=== PATIENT | female | born 1990 | race Caucasian/White ===

== ENCOUNTER → 2018-12-05 12:27 | Outpatient (CLI) | payer OTHER, MEDICAID, SELFPAY ==
--- NOTE | 2018-12-05 12:29 | DI.US.S_ITS ---
PROCEDURE: US OB >= 14 WEEKS FETUS INDICATIONS: ANATOMY SURVEY OUTSIDE/PRIOR DATING DATA: Last menstrual period (LMP): Unknown. LMP-based estimated date of delivery (CHARLES): N./A.. First dating scan (date and location): 10/16/18. Estimated date of delivery (CHARLES) from first dating scan: 03/01/19. TECHNIQUE: Real-time scanning was performed of the fetus, with image documentation and biometric measurements. Endovaginal scanning: Vertex COMPARISON: [facility], OB LIMITED, 10/16/2018, 21:20. FINDINGS: General: A single living intrauterine gestation is present. Presentation: Vertex Placenta: Placental position is anterior, without previa. Amniotic fluid index: 3.4 cm, normal range is 5-24 cm. heart rate: 153 beats per minute. Maternal cervical canal: 3.4 cm long. Normal lower limit is 2.5 cm. biometrics: Biparietal diameter: 28 weeks 6 days Head circumference: 29 weeks 3 days Abdominal circumference: 28 weeks 5 days Femur length: 25 weeks 4 days Estimated gestational age from initial scan: 27 weeks 5 days Composite gestational age from present scan: 27 weeks 4 days Estimated weight and percentile: 1115 g; 37 percentile Measurement variability for biometric dating: +/- 7 days from 14 weeks to 15 weeks 6 days gestation, +/- 10 days from 16 weeks to 21 weeks 6 days gestation, +/- 2 weeks from 22 weeks to 27 weeks 6 days gestation, +/- 3 weeks for 28 weeks gestation or later. weight reference: 4500 g or EFW >90/95% is considered macrosomia or large for gestational age. EFW <10% is small for gestational age. EFW 5% or less is considered intra-uterine growth restriction. Anatomic survey: Neuro: Ventricles are non-dilated at less than 10 mm. Cisterna magna is normal at 3-11 mm. Cerebellum is normal in size and morphology. Nuchal skin fold: Normal at less than 6 mm between 14-21 weeks gestational age. Face: Nose and lips, facial profile are normal. Spine: No evidence for spina bifida. Heart: 4-chambered heart is present, with normal ventricular outflow tracts. Diaphragm: Diaphragm is intact. Stomach: Left-sided stomach is present. Kidneys: No hydronephrosis. Normal is less than 5 mm in 2nd trimester, less than 7 mm in 3rd trimester. Cord: 3-vessel cord has orthotopic insertion. Bladder: Normal in size. Extremities: All 4 extremities identified. IMPRESSION: 1. Normal interval growth. 2. Normal anatomic survey. Dictated by: Florin Lofton [facility] Interpreted: Gia Gutierrez MD on 12/05/2018 at 15:24 Approved by: Gia Gutierrez MD, PhD on 12/05/2018 at 18:03
[2018-12-05 15:37] LABS: Add Manual Diff / Slide Review NO; Basophils Absolute Auto 0 /uL (0-100); Basophils Percent Auto 0.3 % (0-2); Eosinophils Absolute Auto 100 /uL (0-450); Hematocrit 40.1 % (36-46); Hemoglobin 13.3 g/dL (12.0-16.0); Lymphocytes Absolute Auto 1200 /uL (1100-4500); Lymphocytes Percent Auto 10.6 % (25-40); Mean Corpuscular HGB Conc 33.2 % (30-36); Mean Corpuscular Hemoglobin 29.8 PG (26-34); Mean Corpuscular Volume 89.9 fL (80-100); Monocytes Absolute Auto 800 /uL (0-900); Monocytes Percent Auto 7.3 % (3-14); Neutrophils Absolute Auto 9300 /uL (1500-7000); Neutrophils Percent Auto 80.8 % (50-75); Platelet Count 217 X10^3/uL (150-400); Red Blood Cell Count 4.46 X10^6/uL (4.0-5.2); Red Cell Distribution Width 12.9 % (11.6-14.8); White Blood Cell Count 11.5 X10^3/uL (4.5-11.0)
[2018-12-05 15:57] LABS: GTT (PREG) 1 Hour PP 50gm Dose 81 mg/dL (76-139)
[2018-12-05 16:05] LABS: Appearance Urine UA CLEAR; Bilirubin Urine UA NEGATIVE (NEGATIVE); Color Urine UA YELLOW; Glucose Urine UA NEGATIVE (Negative); Ketones Urine UA NEGATIVE (NEGATIVE); Leukocyte Esterase Urine UA NEGATIVE (NEGATIVE); Nitrite Urine UA NEGATIVE (Negative); Occult Blood Urine UA NEGATIVE (Negative); Protein Urine UA NEGATIVE (Negative); Urobilinogen Urine UA 0.2 E.U./dL (0.2); pH Urine UA 7.5 (4.5-8.0)
[2018-12-05 16:52] LABS: Hepatitis B Surface Antigen NEGATIVE s/c (NEGATIVE); Rubella Antibody IgG 51.7 IU/mL (>15)
[2018-12-05 17:13] LABS: HIV 1 and 2 Antibody NEGATIVE (NEGATIVE); Hep C Virus Ab w/Reflex Quant NEGATIVE s/c (NEGATIVE)
[2018-12-07 14:02] LABS: RPR Screen Nonreactive (Nonreactive)
== END ==
PROVIDERS: Visit Provider Obstetrics & Gynecology
DX: Z34.82 Encounter for supervision of other normal pregnancy, second trimester (principal); Z36.89 Encounter for other specified antenatal screening; Z3A.27 27 weeks gestation of pregnancy
CPT/HCPCS: 36415; 76811; 80055; 81003; 82950; 86703; 86787; 86803; 86850; 86900; 86901; 87086

== ENCOUNTER → 2018-12-19 17:15 | Outpatient (CLI) | payer OTHER, MEDICAID, SELFPAY ==
[2018-12-19 19:04] LABS: Urine Amphetamines Negative (Negative); Urine Barbiturates Negative (Negative); Urine Benzodiazepines Negative (Negative); Urine Cocaine Negative (Negative); Urine MDMA Negative (Negative); Urine Methadone Negative (Negative); Urine Methamphetamines Negative (Negative); Urine Morphine/Opi cutoff 2000 Negative (Negative); Urine Oxycodone Negative (Negative); Urine Phencyclidine Negative (Negative); Urine Tetrahydrocannabinol Negative (Negative); Urine Tricyclic Antidepressant Negative (Negative)
[2018-12-19 20:30] LABS: Urine N gonorrhoeae NOT DETECTED
[2018-12-19 20:31] LABS: Urine Chlamydia NOT DETECTED
== END ==
PROVIDERS: Visit Provider Obstetrics & Gynecology
DX: Z34.82 Encounter for supervision of other normal pregnancy, second trimester (principal); Z3A.28 28 weeks gestation of pregnancy
CPT/HCPCS: 80305; 87491; 87591

== ENCOUNTER → 2019-02-07 15:24 | Outpatient (CLI) | payer OTHER, MEDICAID, SELFPAY ==
[2019-02-08 15:58] LABS: Strep Grp B PCR POS for Grp B Strep
== END ==
PROVIDERS: Visit Provider Obstetrics & Gynecology
DX: Z34.83 Encounter for supervision of other normal pregnancy, third trimester (principal)
CPT/HCPCS: 87653

== ENCOUNTER 2019-03-02 07:44 | Inpatient (IN) | payer OTHER, MEDICAID, SELFPAY ==
[2019-03-02] VITALS (9 sets, daily range): BP systolic 90–120; BP diastolic 33–67; PULSE 46–58; RESP 10–19; TEMP 36.1–36.2; O2SAT 96–100
[2019-03-02 09:20] LABS: Add Manual Diff / Slide Review NO; Basophils Absolute Auto 0 /uL (0-100); Basophils Percent Auto 0.2 % (0-2); Eosinophils Absolute Auto 200 /uL (0-450); Eosinophils Percent Auto 2.1 % (2-4); Hematocrit 36.1 % (36-46); Hemoglobin 12.5 g/dL (12.0-16.0); Lymphocytes Absolute Auto 1200 /uL (1100-4500); Lymphocytes Percent Auto 13.5 % (25-40); Mean Corpuscular HGB Conc 34.6 % (30-36); Mean Corpuscular Hemoglobin 30.6 PG (26-34); Mean Corpuscular Volume 88.5 fL (80-100); Monocytes Absolute Auto 900 /uL (0-900); Monocytes Percent Auto 9.5 % (3-14); Neutrophils Absolute Auto 6700 /uL (1500-7000); Neutrophils Percent Auto 74.7 % (50-75); Platelet Count 190 X10^3/uL (150-400); Red Blood Cell Count 4.07 X10^6/uL (4.0-5.2); Red Cell Distribution Width 12.5 % (11.6-14.8)
[2019-03-02] MEDS: LACTATED RINGERS 1,000 ML 100 ML IV ×3 (09:35→22:54)
--- NOTE | 2019-03-02 09:39 | PM.PREOP ---
Pre-operative Note Interval Note History & Physical reviewed/Exam performed by Physician: Yes Changes to H&P: No
[2019-03-02] MEDS: CEFAZOLIN 2 GM/100 ML FROZ.PIGGY IV (10:25)
--- NOTE | 2019-03-02 10:39 | SUR.OPER ---
Supine on Padded OR bed, head on pillow, safety belt at thigh, arms secured on padded arm boards at <90 degrees abduction. Bump under right buttock. Legs uncrossed with pillow under knees, gel pad to heels, tape over blanket to lower legs.
--- NOTE | 2019-03-02 10:45 | SUR.OPER ---
Healthy baby boy born at 1041. placenta and cord blood sent with OB nurse
--- NOTE | 2019-03-02 11:36 | PM.GYNOP.1 ---
Operative Date/Time/Diagnoses Date of procedure: 03/02/19 Time of procedure: 11:36 Pre-op diagnosis: Thirty-nine weeks gestation Three prior sections Post-op diagnosis: same Procedure: Procedures Operation Date: 03/02/19 08:45 Actual Procedures Side Surgeon p Section Nereida Camejo MD Indications: Thirty-nine weeks gestation Previous section x3 Surgeon: Nereida Camejo Delivery Tech: Katelyn Foster Anesthesia Type: Spinal Operative Notes Findings: Live male infant in the SHA position Normal uterus, tubes, and ovaries Fascial adhesions Closure Type: primary Specimen(s): other (Placenta, cord bloods) Applied: catheter (Aden to continuous drainage) Estimated blood loss (mL): 350 Blood products transfused: none Procedure in detail: The patient was taken to the operating room where she was placed in the seated position. Spinal anesthesia with Duramorph was administered. The patient was then placed in the dorsal supine position with a leftward tilt. She was prepped and draped in the usual sterile fashion. A timeout was performed. After spinal analgesia was found to be adequate, a Pfannenstiel skin incision was made through the previous incision and carried through to the underlying layer fascia. The fascia was nicked in the midline, and the incision extended bilaterally with the Genao scissors. The superior aspect of the fascial incision was grasped with a Leawood clamps, elevated, and the underlying rectus muscles dissected off sharply and bluntly. The fascial adhesions were taken down. Attention was then turned to the inferior aspect of this incision which in a similar fashion was grasped with a Chandrakant clamps, elevated, and the underlying rectus muscles dissected off sharply and bluntly. The rectus muscles were in the midline. The peritoneum was identified, grasped between 2 hemostats, and entered sharply with the Metzenbaum scissors. This incision was extended superiorly and inferiorly with good visualization of the bladder. The bladder blade was inserted. The vesicouterine peritoneum was identified, grasped with the pickup, and entered sharply with the Metzenbaum scissors. This incision was extended bilaterally, and the bladder flap was created digitally. The bladder blade was reinserted. The lower uterine segment was incised in a transverse fashion with the scalpel. Upon entering the amniotic sac there was moderate amount of clear amniotic fluid. The infant's head was delivered without difficulty. The nose and mouth were suctioned with bulb suction. The remainder of the body delivered without difficulty. The cord was double clamped and cut. The was handed off to waiting RN and RT. The placenta was delivered manually. The uterus was cleared of all clots and debris. The uterine incision was repaired with #1 chromic in a running interlocking fashion, and a second layer the same suture was used for an imbricating layer. Hemostasis was achieved. The tubes and ovaries were examined and were found to be normal. The gutters were cleared of all clots and debris. The bladder flap was reapproximated using 2-0 Vicryl in a running fashion. The parietal peritoneum was closed using 2-0 Vicryl in a running fashion. The fascia was reapproximated using 0 Vicryl in a running fashion. The subcutaneous layer was copiously irrigated with warm normal saline. 5 simple interrupted sutures of 3-0 Vicryl were placed to reapproximate the subcutaneous layer. The skin was closed with 4-0 undyed Biosyn in a subcuticular fashion. Steri-Strips were placed. An Aquacell dressing was placed. The uterus was expressed of a small amount of old blood. Sponge, lap, and instrument counts were correct x-2. The patient tolerated the procedure well, and was taken to PACU in stable condition. Complications: none Post-operative Condition: stable Disposition: PACU Plan for aftercare: To Center after recovery
[2019-03-02] MEDS: NALBUPHINE 20 MG/ML AMPUL 5 MG IV ×2 (11:48→20:47)
--- NOTE | 2019-03-02 11:57 | SUR.PHASEI ---
states itching resolved, states pain continues at 1/10.
[2019-03-02] MEDS: ONDANSETRON 4 MG/2 ML INJ IV (12:41)
[2019-03-02] MEDS: KETOROLAC 30 MG/ML VIAL IV ×2 (13:02→18:46)
[2019-03-02] MEDS: HYDROCODONE/ACET 5/325 TABLET 2 TAB PO ×2 (16:19→22:53)
[2019-03-03] MEDS: KETOROLAC 30 MG/ML VIAL IV ×2 (00:29→06:25)
[2019-03-03] MEDS: BUTORPHANOL 1 MG/ML VIAL 0.5 MG IV (00:36)
[2019-03-03] MEDS: HYDROCODONE/ACET 5/325 TABLET 2 TAB PO ×3 (05:20→13:52)
[2019-03-03] MEDS: NALBUPHINE 20 MG/ML AMPUL 5 MG IV (06:28)
[2019-03-03 06:40] LABS: Hematocrit 35.2 % (36-46); Hemoglobin 11.8 g/dL (12.0-16.0)
[2019-03-03] MEDS: DOCUSATE 250 MG CAPSULE PO (09:17)
[2019-03-03] MEDS: PRENATAL VIT,CALC/IRON/FOLIC 1 TABLET 1 TAB PO (09:17)
[2019-03-03] MEDS: diphenhydrAMINE 25 MG TABLET PO (10:45)
[2019-03-03] MEDS: IBUPROFEN 600 MG TABLET PO ×2 (13:49→20:16)
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
--- NOTE | 2019-03-03 17:52 | PM.OBPN.1 ---
Subjective - OB Patient comments: pain well controlled (Fairly well controlled), tolerating diet, flatus present and other (dizzy on standing) baby status: nursing well feeding status: exclusively breast feeding Narrative: Patient is a 29-year-old postop day # 1 status post repeat section Date Patient Seen: 03/03/19 Time Patient Seen: 17:53 Exam Vital Signs (past 8 hours): Oxygen Delivery Method Room Air Narrative Exam Narrative: Generally: Patient is sitting up in bed, holding , no acute distress Lungs: Clear to auscultation bilaterally Cardiovascular: Regular rate and rhythm Fundus: Firm at U -1 Incision: Clean dry and intact with Aquacel dressing Extremities: Negative Homans, no edema Objective Labs Result Diagrams: 03/03/19 06:21 Labs: Laboratory Results - last 24 hr 03/03/19 06:21 Hgb 11.8 L Hct 35.2 L Assessment & Plan Plan day: 1 plan OB: routine postop care Comments: Will reassess tomorrow regarding dizziness for possibility of discharge versus keeping another day Time Spent With Patient Total time spent is greater than 50% in coordination of care (as documented) at patient's floor/unit and/or counseling patient: 15-24 minutes
[2019-03-03] MEDS: ACETAMINOPHEN 325 MG TABLET 650 MG PO (20:52)
[2019-03-04] MEDS: HYDROCODONE/ACET 5/325 TABLET 2 TAB PO ×3 (00:22→08:57)
[2019-03-04] MEDS: IBUPROFEN 600 MG TABLET PO ×2 (04:24→11:15)
[2019-03-04] MEDS: PRENATAL VIT,CALC/IRON/FOLIC 1 TABLET 1 TAB PO (08:56)
[2019-03-04] MEDS: DOCUSATE 250 MG CAPSULE PO (08:57)
[2019-03-04 10:21] VITALS: BP 111/75; PULSE 78; RESP 12; TEMP 37.1
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
--- NOTE | 2019-03-06 09:22 | PM.OBDS.1 ---
Discharge Providers Date of admission: 03/02/19 07:44 Discharge Date: 03/04/19 Consults: 03/02/19 12:31 Consult to Sales Trainer Routine Comment: Discharge provider: Nereida Camejo MD Summary Date Patient Seen: 03/04/19 Time Patient Seen: 13:00 Procedures: Repeat low transverse C section Spinal anesthesia Peripartum Data Delivery Method: Section (Repeat) Laceration description: None Episiotomy description: None Procedures: Repeat low transverse C section Spinal anesthesia complications: none Status at Discharge Cognitive/behavioral status at discharge: oriented Functional status at discharge: independent ambulation Overall status at discharge: patient is progressing back to baseline Time Spent with Patient Total time spent providing and/or coordinating discharge services: Less than 30 minutes Objective Labs Result Diagrams: 03/03/19 06:21 Exam Vital Signs (past 8 hours): Oxygen Delivery Method Room Air Narrative Exam Narrative: Generally: Patient walking around in room, no acute distress Lungs: Clear to auscultation bilaterally Cardiovascular: Regular rate and rhythm Fundus: Firm at U -1 Incision: Clean dry and intact with Aquacel dressing Extremities: Trace edema, negative Homans Discharge Plan Discharge Plan Patient Disposition: Home Discharge comment: Call with fever, chills, redness or drainage around incision or bleeding vaginally more than a pad in an hour Discharge Med Rec/Prescriptions Prescriptions: New docusate sodium [Colace] 100 mg capsule 200 mg PO DAILY Qty: 20 RF: 0 ibuprofen 600 mg tablet 600 mg PO Q6H PRN (Reason: cramping) Qty: 30 RF: 0 hydrocodone-acetaminophen [Vicodin] 5-300 mg tablet 1 tab PO Q4-6H PRN (Reason: pain) Qty: 30 RF: 0 Continued VIT#96/FERROUS FUM/FA ( Tablet) 1 tab PO Q DAY Qty: 0 RF: 0 Discontinued ibuprofen 600 MG tablet 600 mg PO Q6HP Qty: 30 RF: 2 Follow up/Referrals: Nereida Camejo MD [Physician] - 1 Week (Aquacel removal) Provider Discharge Instructions Diet: Regular Activity: No heavy lifting. No intercourse Skin/Wound/Dressing Care Report to your healthcare provider any signs of infection, such as:: chills, fever, increased pain, unusual drainage and unusual redness Dressing: Do not remove Visit Report/Discharge Packet Instructions: DI for Discharge Data Attending Provider: Nereida Camejo Admit Date/Time: 03/02/19 07:44 Discharges patient from system. Discharge Date/Time: 03/04/19 14:00
== END 2019-03-04 14:00 | disposition home or self-care (01) | DRG 540 ==
PROVIDERS: Admitting Provider Obstetrics & Gynecology; Visit Provider Obstetrics & Gynecology
PROC: 10D00Z1 Extraction of Products of Conception, Low, Open Approach (ICD-10-PCS; CPT 59514; principal; 2019-03-02 08:45)
DX: O34.219 Maternal care for unspecified type scar from previous cesarean delivery (principal); O99.824 Streptococcus B carrier state complicating childbirth; Z3A.39 39 weeks gestation of pregnancy; Z37.0 Single live birth; O26.23 Pregnancy care for patient with recurrent pregnancy loss, third trimester
CPT/HCPCS: 36415; 59050; 59514; 85014; 85018; 85025; 86850; 86900; 86901; J0595; J0690; J1885; J2274; J2300; J2405; J2590